=== PATIENT | female | born 1945 | race Caucasian/White ===

== ENCOUNTER 2016-11-23 11:24 | Emergency (ER) | payer OTHER, BC ==
[~2016-11-23] VITALS: Ht 167.6 cm; Wt 95.9 kg
[2016-11-23 12:03] LABS: EOSINOPHIL (%) 1.8 % (0-5); EOSINOPHIL COUNT 0.2 K/uL (0-0.3); HEMATOCRIT 28.6 % (36.0-46.0); IMMATURE GRANULOCYTE (%) 0.8 % (0.0-0.7); IMMATURE GRANULOCYTE COUNT 0.1 K/uL; INSTRUMENT ABS NEUTROPHIL CT 7.9 K/uL; LYMPHOCYTE COUNT 1.3 K/uL (1.0-2.8); MCHC 33.6 G/DL (30.0-36.0); MCV 89.4 FL (83-99); MEAN PLAT.VOLUME 8.1 uM^3 (9.5-12.4); MONOCYTE (%) 9.7 % (3-12); NEUTROPHIL (%) 74.8 % (45-76); NEUTROPHIL COUNT 7.9 K/uL (1.8-6.4); PLATELET COUNT 389 K/uL (156-360); RBC DIS.WIDTH-SD 42.7 % (39-53)
[2016-11-23 12:09] LABS: WHITE BLOOD COUNT 10.5 K/uL (4.1-10.2)
[2016-11-23 12:23] LABS: CHLORIDE 97 mEq/L (99-109); POTASSIUM 4.2 mEq/L (3.7-5.4); SODIUM 134 mEq/L (136-147)
[2016-11-23 12:25] LABS: GLUCOSE 94 mg/dL (70-99)
[2016-11-23 12:26] LABS: ANION GAP 11 MEQ/L (2-14)
[2016-11-23 12:29] LABS: GFR ESTIMATE (CALCULATED) > 59 mL/min/
[2016-11-23 12:30] LABS: UREA NITROGEN (BUN) 13 mg/dL (9-23)
[2016-11-23 12:33] LABS: TROP-I INTERPRETATION NEGATIVE; TROPONIN-I < 0.01 ng/mL (0.0-0.30)
[2016-11-23 17:03] LABS: ADD MIUA? YES; BILIRUBIN NEGATIVE; BLOOD NEGATIVE; COLOR YELLOW ((YELLOW)); GLUCOSE (STRIP) NEGATIVE; KETONES 5; LEUKOCYTES LARGE; NITRITE NEGATIVE; PROTEIN (STRIP) NEGATIVE; SPECIFIC GRAVITY 1.004 (1.000-1.030); UROBILINOGEN 0.2 MG/DL (0.2-1.0)
[2016-11-23 17:40] LABS: BACTERIA RARE /HPF; EPITHELIAL CELLS RARE /HPF; MUCUS TRACE /LPF; RED BLOOD CELLS 0-5 /HPF (0-5); UCUL ADDED? NO; WHITE BLOOD CELLS 30-40 /HPF (0-5)
[2016-11-23] MEDS ORDERED: CIPRO500 MG PO (18:00)
[2016-11-23 19:37] VITALS: BP 118/54
== END 2016-11-23 19:40 | disposition home or self-care (01) ==
LOC: EME 11:24
PROVIDERS: Emergency Medicine
DX: M54.5 Low back pain (principal); N39.0 Urinary tract infection, site not specified; G89.18 Other acute postprocedural pain; I10 Essential (primary) hypertension; M79.7 Fibromyalgia; K21.9 Gastro-esophageal reflux disease without esophagitis; E78.5 Hyperlipidemia, unspecified; M19.90 Unspecified osteoarthritis, unspecified site; M43.06 Spondylolysis, lumbar region; Z98.1 Arthrodesis status
CPT/HCPCS: 71010; 80048; 81003; 84484; 85025; 93005; 99281; 99285; G8978 GP CM; G8979 CJ; G8987 GO CJ; G8988 GO CK

== ENCOUNTER 2017-05-14 10:17 | Emergency (ER) | payer OTHER, BC ==
[~2017-05-14] VITALS: Ht 165.1 cm; Wt 94.2 kg
[~2017-05-14 10:17] MED LIST: CIPRO500 MG PO
[2017-05-14] MEDS ORDERED: HYDROCHLOROTHIA25 MG PO (11:10)
[2017-05-14] MEDS ORDERED: METOPROLOL SUCC25 MG PO (11:11)
[2017-05-14] MEDS ORDERED: LISINOPRIL40 MG PO (11:11)
[2017-05-14] MEDS ORDERED: VESICARE10 MG PO (11:11)
[2017-05-14] MEDS ORDERED: ZYRTEC10 M3 PO (11:13)
[2017-05-14] MEDS ORDERED: OMEPRAZOLE20 MG PO (11:13)
[2017-05-14] MEDS ORDERED: TRAMADOL HCL50 MG PO (11:14)
[2017-05-14] MEDS ORDERED: VITAMIN D2000 UNI1 PO (11:15)
[2017-05-14] MEDS ORDERED: [UNRECOGNIZED DRUG - OTHER] PO (11:19)
[2017-05-14] MEDS ORDERED: LYRICA25 MG PO (11:20)
[2017-05-14] MEDS ORDERED: LEVOTHYROXINE125 MCG PO (11:21)
[2017-05-14 12:16] LABS: CHLORIDE 96 mEq/L (99-109); POTASSIUM 3.9 mEq/L (3.7-5.4); SODIUM 130 mEq/L (136-147)
[2017-05-14 12:18] LABS: GLUCOSE 113 mg/dL (70-99)
[2017-05-14 12:19] LABS: ANION GAP 11 MEQ/L (2-14)
[2017-05-14 12:21] LABS: GFR ESTIMATE (CALCULATED) > 59 mL/min/
[2017-05-14 12:22] LABS: UREA NITROGEN (BUN) 20 mg/dL (9-23)
[2017-05-14 12:49] LABS: HEMATOCRIT 35.2 % (36.0-46.0); MCH 30.1 PG (29.0-34.0); MCHC 34.9 G/DL (30.0-36.0); MCV 86.1 FL (83-99); MEAN PLAT.VOLUME 9.1 uM^3 (9.5-12.4); PLATELET COUNT 300 K/uL (156-360); RBC DIS.WIDTH-CV 13.9 % (11.8-14.6); RBC DIS.WIDTH-SD 43.5 % (39-53); RED BLOOD COUNT 4.09 M/uL (3.80-5.20); WHITE BLOOD COUNT 6.1 K/uL (4.1-10.2)
[2017-05-14] MEDS ORDERED: NORCO 5/3251 TABLET PO (13:36)
[2017-05-14 14:05] VITALS: BP 159/81
== END 2017-05-14 14:06 | disposition home or self-care (01) ==
LOC: EME 10:17
DX: S00.03XA Contusion of scalp, initial encounter (principal); M54.2 Cervicalgia; W01.198A Fall on same level from slipping, tripping and stumbling with subsequent striking against other object, initial encounter; Y93.01 Activity, walking, marching and hiking; Y92.531 Health care provider office as the place of occurrence of the external cause; I10 Essential (primary) hypertension; E78.5 Hyperlipidemia, unspecified; M79.7 Fibromyalgia; K21.9 Gastro-esophageal reflux disease without esophagitis
CPT/HCPCS: 70450; 71020; 72125; 80048; 85027; 93005; 99281; 99284